=== PATIENT | male | born 1990 | race African-American/Black ===

== ENCOUNTER 2024-08-15 18:24 | Emergency (ER) | payer OTHER, SELFPAY ==
--- NOTE | ~2024-08-15 | CT_ITS ---
CT brain wo con Ordering provider: Fidelina Montes De Oca PA-C History: 34 years Male with . headache . Comparison: None. Technique: CT of the head without contrast. Radiation reduction technique utilized. The dose-length p roduct was 681 mGy-cm FINDINGS: BRAIN PARENCHYMA AND CSF SPACES: No midline shift, mass effect or hemorrhage. The brain parenchyma a nd CSF spaces are otherwise normal. VISUALIZED PARANASAL SINUSES: Bilateral maxillary sinus disease. Bilateral ethmoid and sphenoid sinus disease. MASTOIDS: Well aerated. BONES: The bones appear intact. SOFT TISSUES: Visualized nasopharynx is normal. Superficial soft tissues are normal. IMPRESSION: No acute intracranial findings. Pansinusitis. Reviewed, dictated and finalized at location A.
[2024-08-15 18:31] VITALS: BP 143/95; PULSE 78; RESP 18; TEMP 36.7; O2SAT 100
[2024-08-15 20:32] VITALS: BP 158/110; PULSE 75; RESP 16; O2SAT 98
--- NOTE | 2024-08-15 20:58 | ED_ITS ---
HPI - Headache General Chief Complaint: Headache Stated Complaint: Migraine headache since Time Seen by Provider: 08/15/24 20:38 Source: patient Mode of arrival: ambulatory Limitations: no limitations History of Present Illness HPI Narrative: This is a 34 year old male that presents to the ER for headache. Ongoing over the last couple of days. He has not taken anything today for pain. Reports a throbbing headache. He does have history of migraines. Denies fever, vision changes, vomiting, numbness, weakness. Related Data Allergies Allergy/AdvReac Type Severity Reaction Status Date / Time No Known Allergies Allergy Mild Verified 08/15/24 20:33 Review of Systems Review of Systems: CONSTITUTIONAL: Denies fever EYES: Denies visual changes GASTROINTESTINAL: Denies vomiting NEUROLOGIC: Denies numbness, or weakness. All systems reviewed & are unremarkable except as noted in HPI and below PMFSH Past Medical History Medical History (Updated 08/15/24 @ 22:52 by Fidelina Montes De Oca PA-C) No active medical problems Social History Social History (Updated 08/15/24 @ 21:01 by Fidelina Montes De Oca PA-C) Substance use: current Substance use type: marijuana Exam Narrative: GENERAL: Well-appearing, well-nourished, and in no acute distress. HEAD: Normocephalic, atraumatic. EYES: PERRLA and EOMI. ENT: Nares clear, no rhinorrhea or epistaxis. Mucous membranes moist. Oropharynx without tonsillar hypertrophy exudate or other lesions. Bilateral TMs pearly espinoza non-bulging NECK: Supple. No adenopathy or masses. CHEST: Clear to auscultation. No respiratory distress. No wheezes rales or rhonchi HEART: Regular rate and rhythm. No murmur heard. Normal peripheral pulses. ABDOMEN: Soft, nontender, nondistended, normal active bowel sounds. EXTREMITIES: Normal range of motion. No edema. Strength equal in bilateral upper and lower extremities (5/5) SKIN: Warm, dry, no rash. NEURO: No focal deficits. Alert and oriented x3. Cranial nerves 2 through 12 grossly intact PSYCH: Normal mood and affect Course Course Emergency Course: patient updated on his workup. Resting comfortably Vital Signs Vital signs: Vital Signs Temperature 98.0 F 08/15/24 18:31 Pulse Rate 78 08/15/24 18:31 Respiratory Rate 18 08/15/24 18:31 Blood Pressure 143/95 H 08/15/24 18:31 Pulse Oximetry 100 08/15/24 18:31 Oxygen Delivery Room Air 08/15/24 18:31 Temperature 98.0 F 08/15/24 18:31 Pulse Rate 87 08/15/24 21:04 Respiratory Rate 16 08/15/24 21:04 Blood Pressure 156/104 H 08/15/24 21:04 Pulse Oximetry 98 08/15/24 21:04 Oxygen Delivery Room Air 08/15/24 18:31 MDM - Headache MDM Narrative Medical decision making narrative: Patient presents to the ER for headache ongoing over the last couple of days. He is afebrile and nontoxic appearing. His vitals are stable. He is neurologically intact. CT brain shows sinusitis. Patient updated on his workup. Resting comfortably. He is to follow up with PCP. He was given warnings to return to the ER Differential Diagnosis Differential diagnosis: Likely migraine, tension headache, headache and sinusitis Imaging Data Radiologist's impression: ITS Impressions Head CT 08/15/24 22:08 IMPRESSION: No acute intracranial findings. Pansinusitis. Critical Care Time Critical Care Time Critical Care Time: No Discharge Plan Discharge Clinical Impression: Acute bacterial sinusitis Patient Disposition: Home Condition: Stable Instructions: Antibiotic Form, Sinusitis (ED) Additional Instructions: Return to the emergency department for worsening symptoms, or any other concerns Remain well-hydrated, get plenty of rest. Take Tylenol or Motrin [id number] for pain as needed. Flonase for nasal congestion. Zyrtec for runny nose. Take oral antibiotic as prescribed Follow up with primary care doctor Patient Language: Luxembourgish Prescriptions: New amoxicillin-pot clavulanate 875-125 mg tablet 1 tablet PO Q12H 5 Days Qty: 10 0RF Follow-up/Referrals: Khang Tran MD [Physician] -
[2024-08-15 21:04] VITALS: BP 156/104; PULSE 87; RESP 16; O2SAT 98
[2024-08-15] MEDS: SODIUM CHLORIDE 0.9% IV 1,000 ML 999 ML IV CONT (21:17)
[2024-08-15] MEDS: diphenhydrAMINE HCl INJ 50 MG/ML VIAL 25 MG IV PUSH (21:18)
[2024-08-15] MEDS: ACETAMINOPHEN 500 MG TABLET 1000 MG PO (21:18)
[2024-08-15] MEDS: METOCLOPRAMIDE HCL INJ 10 MG/2 ML VIAL IV PUSH (21:18)
[2024-08-15 22:46] VITALS: BP 147/91; PULSE 75; RESP 16; O2SAT 95
[2024-08-15] MEDS: KETOROLAC 15 MG/ML VIAL (*BKC) IV PUSH (22:51)
[2024-08-15 23:13] VITALS: BP 146/97
== END 2024-08-15 23:16 | disposition home or self-care (01) ==
PROVIDERS: Emergency Provider Physician Assistant
DX: J01.40 Acute pansinusitis, unspecified (principal); B96.89 Other specified bacterial agents as the cause of diseases classified elsewhere
CPT/HCPCS: 70450; 96374; 96375; 99284; A9270; J1200; J1885; J2765; J7030